=== PATIENT | female | born 1960 | race Asian ===

== ENCOUNTER 2024-01-29 18:59 | Inpatient (IN) | payer OTHER ==
[~2024-01-29] VITALS: Ht 157.5 cm; Wt 45.6 kg
[2024-01-29 19:30] VITALS: PULSE 88; RESP 22; O2SAT 98
[2024-01-29 21:14] LABS: Basophils # (auto) 0 10 ^3/uL (0-0.2); Basophils % (auto) 0.2 % (0.0-2.0); Eosinophils # (auto) 0 10 ^3/uL (0-0.8); Eosinophils % (auto) 0.5 % (0.0-7.0); Hematocrit 31.9 % (36.0-46.0); Hemoglobin 10.2 g/dL (12.2-16.2); Lymphocytes # (auto) 1.1 10 ^3/uL (0.4-5.4); Lymphocytes % (auto) 15.2 % (10.0-50.0); Mean Corpuscular Hemoglobin 30.9 pg (28.0-32.0); Mean Corpuscular Volume 96.5 fL (80.0-100.0); Monocytes # (auto) 0.5 10 ^3/uL (0-1.3); Monocytes % (auto) 7.1 % (0.0-12.0); Neutrophils # (auto) 5.7 10 ^3/uL (1.6-8.6); Nucleated Red Blood Cells % 0.1 %; Red Blood Cells 3.31 10^6/uL (4.0-5.20); Red Cell Distribution Width 13.1 % (11.8-14.3); White Blood Cell 7.4 10^3/uL (4.4-10.8)
[2024-01-29] MEDS: ALBUTEROL SULF 2.5 MG/0.5ML(0.5%) NEB SOLN NEB ONE (21:20)
[2024-01-29] MEDS: IPRATROPIUM BROM 0.5 MG/2.5ML INH SOL NEB ONE (21:20)
[2024-01-29 21:36] LABS: Alanine Aminotransferase < 9 U/L (7-40); Albumin 4.5 g/dL (3.2-4.8); Alkaline Phosphatase 92 U/L (46-116); Anion Gap 9 (5-15); Aspartate Aminotransferase 16 U/L (13-40); BUN/Creatinine Ratio 6.8 (10.0-20.0); Bilirubin, Total 0.3 mg/dL (0.2-1.0); Blood Urea Nitrogen 5 mg/dL (9-23); Calcium 9.3 mg/dL (8.5-10.1); Carbon Dioxide 22 mmol/L (20-30); Chloride 89 mmol/L (98-107); Glucose 167 mg/dL (74-106); Potassium 4.5 mmol/L (3.5-5.1); Sodium 120 mmol/L (136-145); Total Protein 7.7 g/dL (5.7-8.2)
[2024-01-29] MEDS: ONDANSETRON HCL 4 MG/2 ML VIAL IV ONE (21:57)
[2024-01-29] MEDS: MORPHINE SULFATE INJ 2 MG/ml SYRG IV ONE (21:58)
[2024-01-29] MEDS: IOHEXOL 300 MG/ML 100ML BOTTLE IJ ONE (22:59)
[2024-01-30] VITALS (8 sets, daily range): BP systolic 93–109; BP diastolic 58–61; PULSE 71–88; RESP 15–20; TEMP 37; O2SAT 95–99
[2024-01-30] MEDS: cefTRIAXone 1GM/50ML D5W 50 ML IV ONE (00:17)
[2024-01-30] MEDS: MORPHINE SULFATE INJ 2 MG/ml SYRG IV ONE (02:55)
[2024-01-30] MEDS: ONDANSETRON HCL 4 MG/2 ML VIAL IV ONE (02:56)
[2024-01-30] MEDS ORDERED: IPRATROPIUM BROM 0.5 MG/2.5ML INH SOL NEB PRN (04:45)
[2024-01-30] MEDS ORDERED: ACETAMINOPHEN 325 MG TAB PO PRN (04:45)
[2024-01-30] MEDS ORDERED: DOCUSATE SOD 100 MG CAP PO PRN (04:45)
[2024-01-30] MEDS ORDERED: DEXTROSE (50%) 50ML SYRG IV PRN (04:45)
[2024-01-30] MEDS ORDERED: ALBUTEROL SULF 2.5 MG/0.5ML(0.5%) NEB SOLN NEB PRN (04:45)
[2024-01-30] MEDS: SODIUM CHLORIDE 0.9% 1,000 ML IV SCH ×2 (04:57→12:35)
[2024-01-30 05:13] LABS: Basophils # (auto) 0 10 ^3/uL (0-0.2); Basophils % (auto) 0.3 % (0.0-2.0); Eosinophils # (auto) 0 10 ^3/uL (0-0.8); Eosinophils % (auto) 0.8 % (0.0-7.0); Hematocrit 29.8 % (36.0-46.0); Hemoglobin 9.8 g/dL (12.2-16.2); Lymphocytes # (auto) 0.8 10 ^3/uL (0.4-5.4); Lymphocytes % (auto) 14.1 % (10.0-50.0); Mean Corpuscular Hemoglobin 30.9 pg (28.0-32.0); Mean Corpuscular Volume 93.7 fL (80.0-100.0); Monocytes # (auto) 0.4 10 ^3/uL (0-1.3); Monocytes % (auto) 7.4 % (0.0-12.0); Neutrophils # (auto) 4.5 10 ^3/uL (1.6-8.6); Neutrophils % (auto) 77.4 % (37.0-80.0); Red Blood Cells 3.18 10^6/uL (4.0-5.20); Red Cell Distribution Width 13.2 % (11.8-14.3); White Blood Cell 5.8 10^3/uL (4.4-10.8)
[2024-01-30 05:30] LABS: Albumin 4.5 g/dL (3.2-4.8); Alkaline Phosphatase 88 U/L (46-116); Anion Gap 7 (5-15); Aspartate Aminotransferase 11 U/L (13-40); BUN/Creatinine Ratio 8.5 (10.0-20.0); Bilirubin, Total 0.3 mg/dL (0.2-1.0); Blood Urea Nitrogen 6 mg/dL (9-23); Carbon Dioxide 26 mmol/L (20-30); Chloride 90 mmol/L (98-107); Glucose 150 mg/dL (74-106); Potassium 4.4 mmol/L (3.5-5.1); Sodium 123 mmol/L (136-145)
[2024-01-30 05:31] LABS: Total Protein 7.6 g/dL (5.7-8.2)
[2024-01-30 05:34] LABS: Alanine Aminotransferase < 9 U/L (7-40)
[2024-01-30 05:46] LABS: Calcium 9.5 mg/dL (8.5-10.1)
[2024-01-30] MEDS: HYDROcodone-ACET 5/325MG TAB PO PRN (06:13)
[2024-01-30] MEDS ORDERED: NITROGLYCERIN 0.4 MG SL TAB SL PRN (06:45)
[2024-01-30] MEDS ORDERED: MORPHINE SULFATE INJ 2 MG/ml SYRG IV PRN (06:45)
[2024-01-30] MEDS: ACCU-CHEK COMFORT CURVE STRIP VI SCH (07:09)
[2024-01-30] MEDS: InsuLIN REG 1unit/0.01ml Soln (100units/ml) SC SCH ×2 (07:12→22:23)
[2024-01-30] MEDS: cefTRIAXone 1GM/50ML D5W 50 ML IV SCH (09:30)
[2024-01-30 11:57] LABS: Urine Bacteria NONE SEEN /hpf (None Seen); Urine Blood Negative /uL (Negative); Urine Clarity Clear (Clear); Urine Color Colorless (Yellow); Urine Protein, UAD Negative (Negative); Urine Specific Gravity 1.027 (1.001-1.035); Urine Urobilinogen Normal (Negative); Urine WBC <1 /hpf (0 - 5)
[2024-01-30] MEDS ORDERED: ISAV1CAP2 PO (15:05)
[2024-01-30] MEDS ORDERED: TIOTCAP IN (15:05)
[2024-01-30] MEDS ORDERED: LISI20TA56 PO (15:05)
[2024-01-30] MEDS ORDERED: CHOL20007 PO (15:05)
[2024-01-30] MEDS ORDERED: ACET500T58 PO (15:05)
[2024-01-30] MEDS ORDERED: MOME1AER3 INH (15:05)
[2024-01-30] MEDS ORDERED: ALBU0.084 NEB (15:05)
[2024-01-30] MEDS ORDERED: CALC1TAB92 PO (15:05)
[2024-01-30] MEDS ORDERED: ATOR10TA52 PO (15:05)
[2024-01-30] MEDS ORDERED: METF-370 PO (15:05)
[2024-01-30] MEDS: ONDANSETRON HCL 4 MG/2 ML VIAL IV PRN (17:53)
[2024-01-30] MEDS: MORPHINE SULFATE INJ 2 MG/ml SYRG IV PRN (18:06)
[2024-01-31 00:27] VITALS: PULSE 81
[2024-01-31 04:50] VITALS: BP 124/64; PULSE 93; RESP 16; TEMP 98.1; O2SAT 95
[2024-01-31 06:31] LABS: Basophils # (auto) 0 10 ^3/uL (0-0.2); Eosinophils # (auto) 0 10 ^3/uL (0-0.8); Eosinophils % (auto) 0.7 % (0.0-7.0); Lymphocytes # (auto) 0.9 10 ^3/uL (0.4-5.4); Mean Corpuscular Hemoglobin 31.8 pg (28.0-32.0); Monocytes # (auto) 0.5 10 ^3/uL (0-1.3); Neutrophils # (auto) 4.7 10 ^3/uL (1.6-8.6)
[2024-01-31 06:33] LABS: Basophils % (auto) 0.2 % (0.0-2.0); Hematocrit 30.7 % (36.0-46.0); Hemoglobin 10.3 g/dL (12.2-16.2); Lymphocytes % (auto) 14.4 % (10.0-50.0); Mean Corpuscular Hgb Conc. 33.5 g/dL (32.0-36.0); Mean Corpuscular Volume 94.7 fL (80.0-100.0); Neutrophils % (auto) 76.7 % (37.0-80.0); Nucleated Red Blood Cells % 0.1 %; Red Blood Cells 3.25 10^6/uL (4.0-5.20); Red Cell Distribution Width 13.3 % (11.8-14.3); White Blood Cell 6.1 10^3/uL (4.4-10.8)
[2024-01-31 07:04] LABS: Albumin 4.3 g/dL (3.2-4.8); Alkaline Phosphatase 83 U/L (46-116); Anion Gap 7 (5-15); Aspartate Aminotransferase 14 U/L (13-40); BUN/Creatinine Ratio 13.9 (10.0-20.0); Bilirubin, Total 0.2 mg/dL (0.2-1.0); Blood Urea Nitrogen 11 mg/dL (9-23); Calcium 9.9 mg/dL (8.7-10.4); Carbon Dioxide 26 mmol/L (20-30); Chloride 96 mmol/L (98-107); Glucose 115 mg/dL (74-106); Potassium 4.4 mmol/L (3.5-5.1); Total Protein 7.4 g/dL (5.7-8.2)
[2024-01-31 07:27] LABS: Alanine Aminotransferase < 9 U/L (7-40); Sodium 129 mmol/L (136-145)
[2024-01-31 08:00] VITALS: BP 104/66; PULSE 79; PULSE 86; RESP 20; TEMP 97.6; O2SAT 93
[2024-01-31] MEDS ORDERED: HYDR-4902 PO (10:53)
[2024-01-31] MEDS ORDERED: ZOLP5TAB PO (10:53)
[2024-01-31 12:31] VITALS: BP 116/78; PULSE 89; RESP 20; TEMP 98; O2SAT 95
== END 2024-01-31 13:30 | disposition home or self-care (01) | DRG 140 ==
LOC: EDBD 18:59 → ER 18:59 → TELE 01-30 06:31 → TELE-WESTW 01-30 11:48
PROVIDERS: ADMIT Nurse Practitioner Family; ATTEND Nurse Practitioner Family
DX: J47.9 Bronchiectasis, uncomplicated (principal); B48.8 Other specified mycoses; J96.10 Chronic respiratory failure, unspecified whether with hypoxia or hypercapnia; E22.2 Syndrome of inappropriate secretion of antidiuretic hormone; E11.9 Type 2 diabetes mellitus without complications; D64.9 Anemia, unspecified; E78.5 Hyperlipidemia, unspecified; J44.9 Chronic obstructive pulmonary disease, unspecified; I10 Essential (primary) hypertension; R91.8 Other nonspecific abnormal finding of lung field; L13.9 Bullous disorder, unspecified; Z86.11 Personal history of tuberculosis
CPT/HCPCS: 36415; 71045; 71260; 80053; 81001; 82962; 83880; 84484; 85025; 86850; 86900; 86901; 93005; 94640; 96365; 96375; 96376; 97163; G0378; J1815; J2405